=== PATIENT | female | born 2005 | race Caucasian/White ===

== ENCOUNTER → 2023-09-07 10:38 | Outpatient (BNV) | payer MEDICAID, SELFPAY ==
--- NOTE | 2023-09-07 10:39 | MHC.OFFVIS ---
Intake Intake Visit Reasons: Amb Documentation HPI HPI Comments History of Present Illness Details student here - needing verification of . she states that she is 17weeks . lmp april 09 - makes her 21 weeks and edc of 01/15/24 hcg done and it is positive. veriication done. she is also here for orientation - health ins information corrected sent to [facility] Allergies: seasonal - certrizine MEDS: states sertraline, cetrazine,was on adhd meds but stopped them from side effects - she is not clear what they were nor when stopped, on meds for nausea ?ondansatron, vit b6, and then something w/ an M, also on meds for anxiety Mood: she feels is doing fine - she's nervous w/ - how the baby will come out but doesnt feel that depression is really bad. states shes' bipolar . BHN - was w. a therapist she was my best friend didnt like the new therapist felt she was rude, so she doesnt have a therapsit now and feels ok w. that. PMH: kidney stone had covid in - was really weak. 2 shots no boosters surgeries: tonsils and adenoids and sleep studies - was snoring even when awake as 4 year old, and broke her ankle in the fifth grade. ETOH: no, CANNABIS: yes, every day - ob knows this - she has cut down guilt but she cant sleep w.o it, so she tried unisom and that stopped working. they are trying to find something else for her to use beside cannabis - she is waiting a call back aobut this. : yes, = one miscarriage - silent FMH: mother ? ovarian ca, scoliosis, and she's on dialysis for kidney failure, dad - was in [employer] for stealing cars, she used to be close to him but isn't any longer, one sis - gestational dm, and 2 brothers - one w. htn, one w/ mental health issues she lives w. her siblings im head of household [facility] Medical History (Updated 09/07/23 @ 11:00 by PATRICIA Brody) History of ankle fracture Kidney stones History of sleep disorder Anxiety and depression Substance abuse, daily use , normal, incidental Surgical History (Updated 09/07/23 @ 11:00 by PATRICIA Brody) History of tonsillectomy and adenoidectomy Questionnaire PHQ-9 Over the last 2 weeks, how often have you been bothered by any of the following problems? 1. Little interest or pleasure in doing things: several days 2. Feeling down, depressed, or hopeless: not at all 3. Trouble falling or staying asleep, or sleeping too much: not at all 4. Feeling tired or having little energy: several days 5. Poor appetite or overeating: several days 6. Feeling bad about yourself - or that you are a failure or have let yourself or your family down: not at all 7. Trouble concentrating on things, such as reading the newspaper or watching television: several days 8. Moving or speaking so slowly that other people could have noticed. Or the opposite - being so fidgety or restless that you have been moving around a lot more than usual: not at all 9. Thoughts that you would be better off or of hurting yourself in some way: not at all Total score: 4 Depression Screening Interpretation: Positive (states she is feeling better currently - but she is in treatment, no current therapist - currently refusing this bc feeling better) Depression Screening Follow-up: Existing condition and In treatment Depression Screening Done: Yes 65526 - PHQ-9 Billing: Yes Source: Developed by Drs. Danny Ayon, Olga Newell, Jersey Armstrong and colleagues, with an educational sharmila from [employer]. CRAFFT Screening Tool PART A: In the PAST 12 MONTHS, did you: Drink any alcohol (more than few sips)? (Do not count sips of alcohol taken during family or hoahaoism events.): Yes Smoke any marijuana or hashish?: Yes Use anything else to get high? (includes illegal drugs, over the counter/prescription drugs, or things that you sniff/levin?): No PART B: If answered YES to ANY above: Have you ever been in a CAR driven by someone (including yourself) who was high or had been using alcohol or drugs?: No Do you ever use alcohol or drugs to RELAX, feel better about yourself, or fit in?: Yes Do you ever use alcohol or drugs while you are by yourself, or ALONE?: Yes Do you ever FORGET things while using alcohol or drugs?: No Do your FAMILY or FRIENDS ever tell you that you should cut down on your drinking or drug use?: Yes Have you ever gotten into TROUBLE while you were using alcohol or drugs?: No details: she is currently being followed by her ob office, i am also updating our counesling staff NOAHFFT Assessment Charge Noahfft: NADINE [id number] Review of Systems Const Details: Counseling visit: All systems reviewed & are unremarkable except as noted in HPI and below Reports as per HPI Resp Reports as per HPI GI Reports as per HPI Musc Reports as per HPI Neuro Reports as per HPI Psych Reports as per HPI Physical Exam Const General: cooperative, healthy appearing and no acute distress Nutritional Appearance: well nourished Orientation/consciousness: oriented to person Limitations: no limitations HEENT Other: wnl Eyes Other: wnl Chest Other: easy breathing Resp Effort & Inspection: able to speak in complete sentences Skin Other: normal in appearance Neuro General: oriented to person Psych Other: see HPI Mental Status: mental status grossly normal Speech and movement: Clear speech present Attitude: cooperative Thought process: Normal thought process present Assessment & Plan Assessment & Plan (1) , normal, incidental: Code(s): Z33.1 - state, incidental (2) Substance abuse, daily use: Comment: ob working w/ her on decreasing consumption - trial of CBD oil pending Code(s): F19.10 - Other psychoactive substance abuse, uncomplicated (3) Anxiety and depression: Code(s): F41.9 - Anxiety disorder, unspecified; F32.A - Depression, unspecified (4) History of sleep disorder: Comment: sleep disturbance - chronic - since a child Code(s): Z86.69 - Personal history of other diseases of the nervous system and sense organs Plan counseling and coord care. student will need a lot of support - coord care w/ onsite counselors. and when possible w ob providers monitor for increasing symptoms of depression. and assess substance use. Quality Reporting (2019) Depression/Bipolar (159/160/161/177) PHQ-9: Total score: 4 Coding Level of Care Code New Pt Level 5 (23200) Diagnoses , normal, incidental Z33.1 Substance abuse, daily use F19.10 Anxiety and depression F41.9; F32.A History of sleep disorder Z86.69 Additional Codes CRAFFT Assessment Charge - Rajant: NADINE [id number] ([id number]) Time Spent (min) 60 Comment extensive support, coord care and counseling
== END ==
PROVIDERS: Visit Provider Nurse Practitioner Family
DX: F41.9 Anxiety disorder, unspecified (principal); F19.10 Other psychoactive substance abuse, uncomplicated; F32.A Depression, unspecified; Z86.69 Personal history of other diseases of the nervous system and sense organs; Z33.1 Pregnant state, incidental
CPT/HCPCS: 96160; 99205